=== PATIENT | female | born 1975 | race Caucasian/White ===

== ENCOUNTER 2024-07-22 15:52 | Outpatient (CLI) | payer OTHER, SELFPAY ==
--- NOTE | ~2024-07-22 | XR_ITS ---
EXAM: XR lumbar spine min 4V DATE: 07/22/2024 16:08 HISTORY: Facet arthropathy . COMPARISON: None available. FINDINGS: 5 nonrib-bearing lumbar-type vertebral bodies. Pedicles intact. Normal vertebral body alig nment. Vertebral body heights preserved. Mild disc space narrowing at L4-5. Moderate disc space narro wing L5-S1. Facet hypertrophy and sclerosis at all lumbar levels, moderate at L4-5 and L5-S1. No frac ture or dislocation. Unfused posterior S1 arch. No pars defect. IMPRESSION: Moderate degenerative disc disease at L5-S1. Moderate lower lumbar facet arthropathy. Reviewed, dictated and finalized at location K. [facility]
== END 2024-07-22 15:53 | disposition home or self-care (01) ==
PROVIDERS: PCP Nurse Practitioner Family; Visit Provider Nurse Practitioner Family
DX: M47.819 Spondylosis without myelopathy or radiculopathy, site unspecified (principal); M51.379 Other intervertebral disc degeneration, lumbosacral region without mention of lumbar back pain or lower extremity pain
CPT/HCPCS: 72110